=== PATIENT | male | born 1990 | race Caucasian/White ===

== ENCOUNTER 2019-10-15 12:06 | Emergency (ER) | payer BC, OTHER ==
--- NOTE | 2019-10-15 13:20 | RAD REPORT ---
EXAM DESCRIPTION: RAD - Lumbar Spine 3 Views - 10/15/2019 1:13 pm CLINICAL HISTORY: PAIN COMPARISON: CHEST SINGLE VIEW dated 08/27/2013 FINDINGS: A three-view lumbar spine examination was performed. Lumbar bodies are normal in height and normal in AP alignment. There is left lateral tilt of the uppe r lumbar spine. This may be part of a thoracolumbar scoliosis. Muscle spasm is possible as well. No f racture or acute bony process seen. No disc space narrowing. No other significant findings. No pars defects identified. IMPRESSION: No fracture or acute lumbar spine finding. Left lateral tilt of the lumbar spine may be part of the true thoracolumbar scoliosis or could be sec ondary to muscle spasm.
--- NOTE | 2019-10-15 13:38 | ER ---
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 Coronavirus screen: Proceed with normal triage. Patient denies a cough. Patient denies shortness of breath or difficulty breathing. Patient denies measured and/or subjective temperature greater than 100.4F prior to today's visit. Patient denies travel on a cruise ship or to a country the [facility] currently lists as an affected area. Patient denies contact with known and/or suspected case of COVID-19. Ebola Screen: Patient negative for fever greater than or equal to 101.5 degrees Fahrenheit, and additional compatible Ebola Virus Disease symptoms Patient denies exposure to infectious person. Patient denies travel to an Ebola-affected area in the 21 days before illness onset. No symptoms or risks identified at this time. Initial Sepsis Screen: Does the patient meet any 2 criteria? No. Patient's initial sepsis screen is negative. Does the patient have a suspected source of infection? No. Patient's initial sepsis screen is negative. Risk Assessment: Do you want to hurt yourself or someone else? Patient reports no desire to harm self or others. Onset of symptoms was October 12, 2019. 12:30 Method Of Arrival: Ambulatory iw 12:30 Acuity: DARA 3 iw Historical: - Allergies: 12:35 Dimetapp Cold-Congestion; iw - Home Meds: 12:35 losartan oral oral [Active]; pantoprazole oral oral [Active]; fenofibrate oral oral iw [Active]; Metformin Oral [Active]; Zetia Oral [Active]; Lovaza oral oral [Active]; tramadol 50 mg oral tab every 4-6 hours [Active]; ibuprofen 800 mg Oral tab [Active]; Vitamin D Oral daily [Active]; - PMHx: 12:35 Hypertension; Hyperlipidemia; Diabetes - NIDDM; iw - PSHx: 12:35 None; iw - Immunization history:: Adult Immunizations. - Social history:: Smoking status: Patient reports the use of cigarette tobacco products, smokes one-half pack cigarettes per day. - Family history:: not pertinent. Screenin:05 Abuse screen: Denies threats or abuse. Nutritional screening: No deficits noted. rb1 Tuberculosis screening: No symptoms or risk factors identified. Fall Risk None identified. Assessment: 13:35 General: Appears uncomfortable, Behavior is calm, cooperative. Pain: Complains of pain rb1 in right low back and left low back Pain currently is 7 out of 10 on a pain scale. 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 Neuro: Level of Consciousness is awake, alert, obeys commands, Oriented to person, place, time, situation. Cardiovascular: Capillary refill < 3 seconds is brisk in bilateral fingers. Respiratory: Airway is patent Respiratory effort is even, unlabored, Respiratory pattern is regular, symmetrical. GI: No signs and/or symptoms were reported involving the gastrointestinal system. : No signs and/or symptoms were reported regarding the genitourinary system. Derm: Skin is pink, warm \T\ dry. 14:10 Reassessment: Pt. requested to speak with the provider before being discharged. Dr. josé luis Hoffman notified. Vital Signs: 12:30 BP 141 / 84; Pulse 97; Resp 16; Temp 97.4; Pulse Ox 100% on R/A; Weight 102.06 kg; iw Height 5 ft. 9 in. (175.26 cm); Pain 8/10; 12:30 Body Mass Index 33.23 (102.06 kg, 175.26 cm) iw ED Course: 12:08 Patient arrived in ED. ag5 12:32 Triage completed. iw 12:35 Arm band placed on. iw 12:42 Nolan Hoffman MD is Attending Physician. susan 13:05 Patient has correct armband on for positive identification. Bed in low position. Call rb1 light in reach. Side rails up X 1. Pulse ox on. NIBP on. 13:06 Lumbar Spine (3 Views) XRAY In Process Unspecified. EDMS 13:30 Niyah Gonzales, RN is Primary Nurse. rb1 14:23 No provider procedures requiring assistance completed. Patient did not have IV access rb1 during this emergency room visit. Administered Medications: 14:24 Not Given (Patient Refused): TORadol 60 mg IM once rb1 14:24 Not Given (Patient Refused): Valium 5 mg PO once rb1 14:24 Not Given (Patient Refused): [place] 10 mg-325 mg 1 tabs PO once; RASS on ADMIN: Combtv4, rb1 Very Agttd3, Agttd2, Rstlss1, AlertClm0, Drwsy-1, Lt Sdtn-2, Mod Sdtn-3, Dp Sdtn-4, UnArsble-5 Outcome: 13:37 Discharge ordered by . susan 14:23 Patient left the ED. rb1 14:23 Discharged to home ambulatory, with family. rb1 14:23 Condition: stable 14:23 Discharge instructions given to patient, Instructed on discharge instructions, follow up and referral plans. medication usage, Demonstrated understanding of instructions, follow-up care, medications, Prescriptions given X 1. Signatures: Dispatcher [employer] EDNolan Tamayo MD MD cha Williams, Irene, RN Niyah Smith RN RN Ellen Mcpherson ag5
--- NOTE | 2019-10-15 13:39 | EDPHYS ---
Physician Documentation [facility] Name: Ina Mari Age: 29 yrs Sex: Male : 1990 Arrival Date: 10/15/2019 Time: 12:08 Bed 20 Private MD: KENNY Physician Nolan Hoffman HPI: 10/14 12:51 This 29 yrs old Male presents to ER via Ambulatory with complaints of Back susan Injury. 12:51 The patient presents with pain that is acute, and decreased range of motion, and an susan injury, and tenderness. The symptoms are located in the low back, lumbar area, left low back and right low back. Onset: The symptoms/episode began/occurred 2 day(s) ago. The pain does not radiate. Associated signs and symptoms: The patient has no apparent associated signs or symptoms. The problem was sustained when bending over, when lifting boxes, at [facility], henry. Modifying factors: The patient symptoms are alleviated by nothing, remaining still, the patient symptoms are aggravated by any movement, bending, lifting, movement, walking. Severity of symptoms: At their worst the symptoms were moderate, in the emergency department the symptoms are unchanged. The patient has not experienced similar symptoms in the past. Historical: - Allergies: 12:35 Dimetapp Cold-Congestion; iw - Home Meds: 12:35 losartan oral oral [Active]; pantoprazole oral oral [Active]; fenofibrate oral oral iw [Active]; Metformin Oral [Active]; Zetia Oral [Active]; Lovaza oral oral [Active]; tramadol 50 mg oral tab every 4-6 hours [Active]; ibuprofen 800 mg Oral tab [Active]; Vitamin D Oral daily [Active]; - PMHx: 12:35 Hypertension; Hyperlipidemia; Diabetes - NIDDM; iw - PSHx: 12:35 None; iw - Immunization history:: Adult Immunizations. - Social history:: Smoking status: Patient reports the use of cigarette tobacco products, smokes one-half pack cigarettes per day. - Family history:: not pertinent. ROS: 12:51 Constitutional: Negative for fever, chills, and weight loss, Eyes: Negative for injury, susan pain, redness, and discharge, ENT: Negative for injury, pain, and discharge, Neck: Negative for injury, pain, and swelling, Cardiovascular: Negative for chest pain, palpitations, and edema, Respiratory: Negative for shortness of breath, cough, wheezing, and pleuritic chest pain, Abdomen/GI: Negative for abdominal pain, nausea, vomiting, diarrhea, and constipation, : Negative for injury, bleeding, discharge, and swelling, MS/Extremity: Negative for injury and deformity, Skin: Negative for injury, rash, and discoloration, Neuro: Negative for headache, weakness, numbness, tingling, and seizure, Psych: Negative for depression, anxiety, suicide ideation, homicidal ideation, and hallucinations, Allergy/Immunology: Negative for hives, rash, and allergies, Endocrine: Negative for neck swelling, polydipsia, polyuria, polyphagia, and marked weight changes, Hematologic/Lymphatic: Negative for swollen nodes, abnormal bleeding, and unusual bruising. 12:51 Back: Positive for injury or acute deformity, decreased range of motion, pain at rest, pain with movement, of the lumbar area, left low back and right low back. Exam: 12:51 Constitutional: This is a well developed, well nourished patient who is awake, alert, susan and in no acute distress. Head/Face: Normocephalic, atraumatic. Eyes: Pupils equal round and reactive to light, extra-ocular motions intact. Lids and lashes normal. Conjunctiva and sclera are non-icteric and not injected. Cornea within normal limits. Periorbital areas with no swelling, redness, or edema. ENT: Nares patent. No nasal discharge, no septal abnormalities noted. Tympanic membranes are normal and external auditory canals are clear. Oropharynx with no redness, swelling, or masses, exudates, or evidence of obstruction, uvula midline. Mucous membranes moist. Neck: Trachea midline, no thyromegaly or masses palpated, and no cervical lymphadenopathy. Supple, full range of motion without nuchal rigidity, or vertebral point tenderness. No Meningismus. Chest/axilla: Normal chest wall appearance and motion. Nontender with no deformity. No lesions are appreciated. Cardiovascular: Regular rate and rhythm with a normal S1 and S2. No gallops, murmurs, or rubs. Normal PMI, no JVD. No pulse deficits. Respiratory: Lungs have equal breath sounds bilaterally, clear to auscultation and percussion. No rales, rhonchi or wheezes noted. No increased work of breathing, no retractions or nasal flaring. Abdomen/GI: Soft, non-tender, with normal bowel sounds. No distension or tympany. No guarding or rebound. No evidence of tenderness throughout. Male : Normal genitalia with no discharge or lesions. Skin: Warm, dry with normal turgor. Normal color with no rashes, no lesions, and no evidence of cellulitis. MS/ Extremity: Pulses equal, no cyanosis. Neurovascular intact. Full, normal range of motion. Neuro: Awake and alert, GCS 15, oriented to person, place, time, and situation. Cranial nerves II-XII grossly intact. Motor strength 5/5 in all extremities. Sensory grossly intact. Cerebellar exam normal. Normal gait. Psych: Awake, alert, with orientation to person, place and time. Behavior, mood, and affect are within normal limits. 12:51 Back: pain, that is moderate, ROM is painful, normal spinal alignment noted, CVA tenderness, that is mild, that is moderate, muscle spasm, is appreciated in the left low back, left mid back, right mid back and right low back. Vital Signs: 12:30 BP 141 / 84; Pulse 97; Resp 16; Temp 97.4; Pulse Ox 100% on R/A; Weight 102.06 kg; iw Height 5 ft. 9 in. (175.26 cm); Pain 8/10; 12:30 Body Mass Index 33.23 (102.06 kg, 175.26 cm) iw MDM: 12:42 Patient medically screened. [facility] 12:55 Data reviewed: vital signs, nurses notes, lab test result(s), radiologic studies, plain susan films. 13:34 Differential diagnosis: chronic back pain, Fatigue Hydronephrosis ruptured disc, susan sprain. Data interpreted: court recording monitor: rate is 97 beats/min, Pulse oximetry: is 100 %. Test interpretation: by ED physician or midlevel provider: plain radiologic studies. Counseling: I had a detailed discussion with the patient and/or guardian regarding: the historical points, exam findings, and any diagnostic results supporting the discharge/admit diagnosis, lab results, radiology results, the need for outpatient follow up, for definitive care, a orthopedic surgeon. ED course: lifting injury at work on Wednesday, will follow up with company doctor. 14:16 ED course: will add mr on the pt, has motrin and tramadol at home. [facility] 10/14 13:47 Order name: Urine Dipstick--Ancillary (enter results) 10/14 12:51 Order name: Lumbar Spine (3 Views) XRAY [facility] 10/14 12:51 Order name: Urine Dipstick-Ancillary (obtain specimen); Complete Time: 13:47 [facility] Administered Medications: 14:24 Not Given (Patient Refused): TORadol 60 mg IM once rb1 14:24 Not Given (Patient Refused): Valium 5 mg PO once rb1 14:24 Not Given (Patient Refused): [place] 10 mg-325 mg 1 tabs PO once; RASS on ADMIN: Combtv4, rb1 Very Agttd3, Agttd2, Rstlss1, AlertClm0, Drwsy-1, Lt Sdtn-2, Mod Sdtn-3, Dp Sdtn-4, UnArsble-5 Disposition: 10/15/19 13:37 Discharged to Home. Impression: Low back pain, Type 2 diabetes mellitus, Essential (primary) hypertension. - Condition is Stable. - Discharge Instructions: Back Pain, Adult, Type 2 Diabetes Mellitus, Diagnosis, Adult, Hypertension, Musculoskeletal Pain, Hypertension, [id number], Back Pain, Adult, Glhi-fc-Gqrl, Type 2 Diabetes Mellitus, Diagnosis, Adult, Qrcl-xw-Hogh. - Prescriptions for Cyclobenzaprine 5 mg Oral Tablet - take 1 tablet by ORAL route 3 times per day As needed; 15 tablet. - Work release form, Medication Reconciliation Form, Thank You Letter, Antibiotic Education, Prescription Opioid Use form. - Follow up: Private Physician; When: 1 - 2 days; Reason: Recheck today's complaints, Continuance of care, Re-evaluation by your physician. - Problem is new. - Symptoms have improved. Signatures: Dispatcher [employer] Nolan Guardado MD MD cha Williams, Irene, RN RN Niyah Sheffield RN RN rb1 Corrections: (The following items were deleted from the chart) 14: 13:37 10/15/2019 13:37 Discharged to Home. Impression: Low back pain. Condition is [facility] Stable. Forms are Medication Reconciliation Form, Thank You Letter, Antibiotic Education, Prescription Opioid Use. Follow up: Private Physician; When: 1 - 2 days; Reason: Recheck today's complaints, Continuance of care, Re-evaluation by your physician. Problem is new. Symptoms have improved. [facility] 14:23 14:14 10/15/2019 13:37 Discharged to Home. Impression: Low back pain; Type 2 diabetes rb1 mellitus; Essential (primary) hypertension. Condition is Stable. Discharge Instructions: Back Pain, Adult, Musculoskeletal Pain, Back Pain, Adult, Qpuz-cm-Hdor. Forms are Medication Reconciliation Form, Thank You Letter, Antibiotic Education, Prescription Opioid Use, Work release form. Follow up: Private Physician; When: 1 - 2 days; Reason: Recheck today's complaints, Continuance of care, Re-evaluation by your physician. Problem is new. Symptoms have improved. [facility]
[2019-10-15 14:30] VITALS: BP 141/84; TEMP 97.4; O2SAT 100
[2019-10-15 14:31] LABS: Urine Blood NEGATIVE (NEG); Urine Glucose NEGATIVE (NEG); Urine Protein NEGATIVE (NEG)
== END 2019-10-15 14:23 | disposition home or self-care (01) ==
LOC: ER 12:06
DX: M54.5 Low back pain (principal); E11.9 Type 2 diabetes mellitus without complications; I10 Essential (primary) hypertension; E78.5 Hyperlipidemia, unspecified; F17.210 Nicotine dependence, cigarettes, uncomplicated; Z91.048 Other nonmedicinal substance allergy status
CPT/HCPCS: 72100; 81003; 99283

== ENCOUNTER 2024-03-26 18:30 | Emergency (ER) | payer BC, OTHER ==
--- NOTE | 2024-03-26 20:04 | RAD REPORT ---
EXAM: CT PELVIS WITHOUT CONTRAST HISTORY: left hip pain, h/o avn COMPARISON: None TECHNIQUE: Multiple contiguous axial images were obtained and a CT of the pelvis with IV contrast. Sa gittal and coronal reformats were performed. One or more of the following dose reduction techniques were used: Automated exposure control, adjustment of the mA and/or kV according to patient size, and/ or iterative reconstruction. FINDINGS: No pelvic fractures are seen. Right total hip arthroplasty.. 3 cm area of avascular necrosi s noted superior left femoral head. No femoral head collapse seen. The visualized intrapelvic structures are unremarkable. Sigmoid diverticulosis coli. The soft tissues surrounding the pelvis are unremarkable. Small fat-containing left inguinal hernia. IMPRESSION: 3 cm area of avascular necrosis superior left femoral head. No femoral head collapse.
--- NOTE | 2024-03-26 20:39 | EDPHYS ---
Physician Documentation [facility] Name: Ina Mari Age: 33 yrs Sex: Male : 1990 Arrival Date: 03/26/2024 Time: 18:30 Bed 12 Private MD: ED Physician Jaswinder Carney HPI: 03/27 01:29 This 33 yrs old Male presents to ER via Wheelchair with complaints of Leg Pain - Left. sb4 01:30 patient reports history of bilateral avascular necrosis of femoral heads, cause sb4 unknown. states he was diagnosed earlier this year and underwent total right hip replacement shortly afterwards. he states that over the past few days, his left hip has been giving him a lot of pain and if he bears weight for too long, his leg will "give out" he is concerned about femoral head collapse. Historical: - Allergies: 03/26 19:14 Dimetapp Cold-Congestion; cm10 19:14 Strawberries; cm10 - Home Meds: 19:15 Rybelsus 7 mg oral tablet [Active]; metformin 500 mg oral tablet 2 times per day cm10 [Active]; [place]-3 oral [Active]; glucosamine-chondroitin oral [Active]; fenofibrate Oral [Active]; pantoprazole 40 mg oral tablet, delayed release (enteric coated) [Active]; losartan 100 mg oral tablet [Active]; magnesium oxide 400 mg magnesium oral tablet [Active]; Vitamin D Oral daily [Active]; ezetimibe 10 mg oral tablet [Active]; tizanidine 4 mg oral capsule [Active]; metaxalone 800 mg oral tablet [Active]; tramadol 50 mg Oral tab every 4-6 hours [Active]; Tylenol #3 Oral [Active]; aspirin 81 mg Oral tablet,chewable [Active]; - PMHx: 19:14 Diabetes - NIDDM; Hyperlipidemia; Hypertension; AVASCULAR NECROSIS; cm10 - PSHx: 19:14 RIGHT HIP REPLACEMENT; cm10 19:15 LAMINOTOMY; cm10 - Immunization history:: Adult Immunizations up to date. - Infectious Disease History:: Denies. - Social history:: Smoking status: Patient reports the use of cigarette tobacco products, cigars. ROS: 03/27 01:30 Constitutional: Negative for fever, chills, and weight loss, sb4 MS/extremity: Positive for pain, of the left hip, All other systems are negative, Exam: 01:30 Constitutional: This is a well developed, well nourished patient who is awake, alert, sb4 and in no acute distress. Head/Face: Normocephalic, atraumatic. Eyes: Extra-ocular motions intact. Periorbital areas with no swelling, redness, or edema. ENT: Mucous membranes moist. Skin: Warm, dry with normal turgor. Normal color with no rashes, no lesions, and no evidence of cellulitis. Neuro: Awake and alert, GCS 15, oriented to person, place, time, and situation. Motor strength 5/5 in all extremities. Sensory grossly intact. 01:30 Musculoskeletal/extremity: Joints: the left hip displays pain at rest, painful range of motion, Vital Signs: 03/26 19:09 BP 133 / 82; Pulse 92; Resp 16; Temp 98.2(O); Pulse Ox 99% ; Pain 7/10; cm10 20:42 BP 127 / 84; Pulse 88; Resp 16; Temp 98.4; Pulse Ox 99% ; me1 19:09 Pain Scale: Adult cm10 MDM: 18:41 Medical Screening Exam initiated sb4 03/27 01:32 Data reviewed: vital signs, nurses notes, radiologic studies, and as a result, I will sb4 discharge patient. Counseling: I had a detailed discussion with the patient and/or guardian regarding the historical points, exam findings, and any diagnostic results supporting the discharge/admit diagnosis, radiology results, the need for outpatient follow up, a orthopedic surgeon, to return to the emergency department if symptoms worsen or persist or if there are any questions or concerns that arise at home. 03/26 19:15 Order name: Pelvis Wo Cont CT; Complete Time: 20:06 sb4 Administered Medications: No medications were administered Disposition Summary: 03/26/24 20:39 Discharge Ordered Notes: Location: Home sb4 Problem: an acute exacerbation sb4 Symptoms: are unchanged sb4 Condition: Stable sb4 Diagnosis - Avascular necrosis of left hip sb4 Followup: sb4 - With: Private Physician - When: 2 - 3 days - Reason: Recheck today's complaints, Re-evaluation by your physician Discharge Instructions: - Discharge Summary Sheet sb4 - Hip Pain sb4 Forms: - Patient Portal Instructions sb4 - Leadership Thank You Letter sb4 Signatures: Rohan MedJeniffer Newman PA-C PA-C sb4 Nicki Quezada, RN RN cm10
--- NOTE | 2024-03-26 20:39 | ER ---
Nurse's Notes [facility] Name: Ina Mari Age: 33 yrs Sex: Male : 1990 Arrival Date: 03/26/2024 Time: 18:30 Bed 12 Private MD: Diagnosis: Avascular necrosis of left hip Presentation: 03/26 19:09 Chief complaint: Patient states: LEFT LEG PAIN ONSET TODAY. PT STATES THAT TODAY HIS cm10 LEG BUCKLED AND HE IS UNABLE TO BEAR WAIT. PT STATES THAT HE WAS HAVING PAIN A FEW DAYS AGO BUT TODAY IT GOT WORSE. Coronavirus screen: Client denies travel out of the [place] in the last 14 days. Ebola Screen: Patient denies travel to an Ebola-affected area in the 21 days before illness onset. No symptoms or risks identified at this time. Initial Sepsis Screen: Does the patient meet any 2 criteria? HR > 90 bpm. Does the patient have a suspected source of infection? No. Patient's initial sepsis screen is negative. Risk Assessment: Do you want to hurt yourself or someone else? Patient reports no desire to harm self or others. Onset of symptoms was March 26, 2024. 19:09 Method Of Arrival: Wheelchair cm10 19:09 Acuity: DARA 3 cm10 Triage Assessment: 19:21 General: Appears in no apparent distress. comfortable, Behavior is calm, cooperative. cm10 Neuro: No deficits noted. Level of Consciousness is awake, alert, obeys commands, Oriented to person, place, time, situation, Appropriate for age. Respiratory: No deficits noted. Airway is patent Respiratory effort is even, unlabored, Respiratory pattern is regular, symmetrical. Historical: - Allergies: 19:14 Dimetapp Cold-Congestion; cm10 19:14 Strawberries; cm10 - Home Meds: 19:15 Rybelsus 7 mg oral tablet [Active]; metformin 500 mg oral tablet 2 times per day cm10 [Active]; Sandstone-3 oral [Active]; glucosamine-chondroitin oral [Active]; fenofibrate Oral [Active]; pantoprazole 40 mg oral tablet, delayed release (enteric coated) [Active]; losartan 100 mg oral tablet [Active]; magnesium oxide 400 mg magnesium oral tablet [Active]; Vitamin D Oral daily [Active]; ezetimibe 10 mg oral tablet [Active]; tizanidine 4 mg oral capsule [Active]; metaxalone 800 mg oral tablet [Active]; tramadol 50 mg Oral tab every 4-6 hours [Active]; Tylenol #3 Oral [Active]; aspirin 81 mg Oral tablet,chewable [Active]; - PMHx: 19:14 Diabetes - NIDDM; Hyperlipidemia; Hypertension; AVASCULAR NECROSIS; cm10 - PSHx: 19:14 RIGHT HIP REPLACEMENT; cm10 19:15 LAMINOTOMY; cm10 - Immunization history:: Adult Immunizations up to date. - Infectious Disease History:: Denies. - Social history:: Smoking status: Patient reports the use of cigarette tobacco products, cigars. Screenin:25 [facility] [place] ED Fall Risk Assessment (Adult) History of falling in the last 3 months, me1 including since admission Yes- single mechanical fall (1 pt) Confusion or Disorientation No (0 pts) Intoxicated or Sedated No (0 pts) Impaired Gait Yes (1 pt) Mobility Assist Device Used Yes (1 pt) Altered Elimination No (0 pt) Score/Fall Risk Level 0 - 2 = Low Risk Maintained a safe environment, Provided non-skid footwear, Hourly rounding (assess needs \T\ fall precautionary measures) done. Abuse screen: Denies threats or abuse. Nutritional screening: No deficits noted. Tuberculosis screening: No symptoms or risk factors identified. Assessment: 19:25 General: Appears uncomfortable, well groomed, well developed, well nourished, Behavior me1 is calm, cooperative, appropriate for age, Reports LEFT LEG PAIN ONSET TODAY. PT STATES THAT TODAY HIS LEG BUCKLED AND HE IS UNABLE TO BEAR WAIT. PT STATES THAT HE WAS HAVING PAIN A FEW DAYS AGO BUT TODAY IT GOT WORSE. Pain: Complains of pain in left leg Pain does not radiate. Pain currently is 8 out of 10 on a pain scale. Quality of pain is described as pressure, sharp, Pain began suddenly, Is continuous. Pain:. Neuro: Level of Consciousness is. Neuro: Level of Consciousness is awake, alert, obeys commands, Oriented to person, place, time, situation, Appropriate for age. Cardiovascular: Patient's skin is warm and dry. Respiratory: Airway is patent Trachea midline Respiratory effort is even, unlabored, Respiratory pattern is regular, symmetrical. GI: No signs and/or symptoms were reported involving the gastrointestinal system. : No signs and/or symptoms were reported regarding the genitourinary system. EENT: No signs and/or symptoms were reported regarding the EENT system. Derm: Skin is intact, is healthy with good turgor, Skin is pink, warm \T\ dry. Musculoskeletal: Reports pain in left leg. Injury Description: LEFT LEG PAIN ONSET TODAY. PT STATES THAT TODAY HIS LEG BUCKLED AND HE IS UNABLE TO BEAR WAIT. PT STATES THAT HE WAS HAVING PAIN A FEW DAYS AGO BUT TODAY IT GOT WORSE. Vital Signs: 19:09 BP 133 / 82; Pulse 92; Resp 16; Temp 98.2(O); Pulse Ox 99% ; Pain 7/10; cm10 20:42 BP 127 / 84; Pulse 88; Resp 16; Temp 98.4; Pulse Ox 99% ; me1 19:09 Pain Scale: Adult cm10 ED Course: 18:32 Patient arrived in ED. rs5 18:41 Jeniffer Pal PA-C is PHCP. sb4 18:41 Jaswinder Carney MD is Attending Physician. sb4 19:14 Triage completed. cm10 19:19 Marcie Ron, RN is Primary Nurse. me1 19:21 Arm band placed on left wrist. cm10 19:25 Patient has correct armband on for positive identification. Bed in low position. Call me1 light in reach. Side rails up X2. Provided Education on: POC. Verbalized understanding. . 19:25 No provider procedures requiring assistance completed. Patient did not have IV access me1 during this emergency room visit. 19:[address] In Process Unspecified. EDMS Administered Medications: No medications were administered Medication: 19:25 VIS not applicable for this client. me1 Outcome: 20:39 Discharge ordered by . sb4 20:46 Discharged to home via wheelchair, me1 20:46 Condition: stable 20:46 Discharge instructions given to patient, Instructed on discharge instructions, follow up and referral plans. Demonstrated understanding of instructions, follow-up care, 20:51 Patient left the ED. me1 Signatures: Dispatcher [employer] EDMS Jeniffer Pal PA-C PA-C sb4 Jose Voss RN RN rs5 Nicki Quezada RN RN cm10 Marcie Ron, SHWETA RN me1 Corrections: (The following items were deleted from the chart) 19:22 19:09 Chief complaint: Patient states: LEFT LEG PAIN ONSET TODAY. PT STATES THAT TODAY me1 HIS LEG BUCKLED AND HE IS UNABLE TO BEAR WAIT. PT STATES THAT HE WAS HAVING PAIN A FEW DAYS AGO BUT TODAY IT GOT WORSE. cm10
[2024-03-26 23:04] VITALS: O2SAT 99
[2024-03-26 23:05] VITALS: BP 127/84; TEMP 98.4
== END 2024-03-26 20:51 | disposition home or self-care (01) ==
LOC: ER 18:30
DX: M87.052 Idiopathic aseptic necrosis of left femur (principal); Z96.641 Presence of right artificial hip joint
CPT/HCPCS: 72192; 99283